=== PATIENT | male | born 1940 ===

== ENCOUNTER 2017-03-20 19:03 | Inpatient (IN) ==
[2017-03-20] MEDS: POTASSIUM CHLORIDE INJ 10 MEQ in LACTATED RINGERS 1,000 ML IV SCH (20:09)
[2017-03-20] MEDS ORDERED: ONDANSETRON 4 MG/2 ML VIAL IV PRN (20:21)
[2017-03-20] MEDS ORDERED: MORPHINE 2 MG/1 ML SYRINGE IV PRN (20:21)
[2017-03-20] MEDS ORDERED: amLODIPine 5 MG TABLET PO STA (20:26)
[2017-03-20] MEDS ORDERED: DEXTROSE 50% 25 GM/50 ML VIAL IV PRN (20:26)
[2017-03-20] MEDS ORDERED: GLUCAGON 1 MG VIAL IM PRN (20:26)
[2017-03-20] MEDS ORDERED: ENOXAPARIN 40 MG/0.4 ML SYRINGE SUBCUT SCH (21:00)
[2017-03-21] MEDS: SODIUM CHLORIDE 0.9% 1,000 ML IV SCH ×3 (01:33→09:52)
[2017-03-21 06:19] LABS: Basophils % 0.3 % (0.0-0.8); Hematocrit 31.6 VOL% (42.0-52.0); Hemoglobin 9.3 GM/DL (14.0-18.0); Immature Granulocytes % 0.7 %; Immature Granulocytes Absolute 0.06 #; Lymphocytes # 0.9 10*3/uL (1.4-4.0); Lymphocytes % 9.6 % (21.2-54.2); Mean Corpuscular HGB Conc 29.4 GM/DL (32-36); Mean Corpuscular Hemoglobin 25 PG (27-34); Mean Corpuscular Volume 85.2 FL (87-102); Mean Platelet Volume 11.3 FL (9.6-12.0); Monocytes # 0.7 10*3/uL (0.11-0.8); Monocytes % 7.3 % (1.7-12.7); Neutrophils # 7.5 10*3/uL (1.4-7.4); Neutrophils % 82.1 % (38.7-73.9); Platelet Count 135 T/CUMM (130-400); Red Blood Count 3.71 MC/CUMM (3.8-5.5); Red Cell Distribution Width 18.9 % (9.3-17.3); White Blood Count 9.1 T/CUMM (4-12)
[2017-03-21] MEDS: POTASSIUM CHLORIDE INJ 10 MEQ in LACTATED RINGERS 1,000 ML IV SCH (06:21)
[2017-03-21 06:43] LABS: Albumin 2.8 G/DL (3.4-5.0); Bilirubin,Total 0.6 MG/DL (0.2-1.0); Calcium 8.9 MG/DL (8.5-10.1); Potassium 4.9 MMOL/L (3.5-5.1); Total Protein 6.9 G/DL (6.4-8.3)
[2017-03-21] MEDS ORDERED: INSULIN REGULAR 100 UNIT/ML SUBCUT SCH (07:30)
[2017-03-21] MEDS: PANTOPRAZOLE 40 MG VIAL IV SCH (09:50)
[2017-03-21 10:47] LABS: Cancer Antigen 19-9 59.9 U/ML (0-37); Carcinoembryonic Antigen < 0.5 NG/ML (0.0-5.0); Prostate Specific Antigen Diag 0.1 NG/ML (0-4)
[2017-03-21] MEDS: DEXTROSE 5% NACL 0.9% 1,000 ML IV SCH (15:37)
[2017-03-21] MEDS: INSULIN REGULAR 100 UNIT/ML SUBCUT SCH ×3 (15:48→23:14)
[2017-03-21] MEDS: FERROUS SULFATE 325 MG TABLET PO SCH ×2 (15:49→23:13)
[2017-03-22] MEDS: DEXTROSE 5% NACL 0.9% 1,000 ML IV SCH ×4 (00:15→18:34)
[2017-03-22 06:07] LABS: Basophils % 0.3 % (0.0-0.8); Eosinophils % 0.6 % (0.00-10.9); Hematocrit 26.5 VOL% (42.0-52.0); Hemoglobin 8.1 GM/DL (14.0-18.0); Immature Granulocytes % 0.6 %; Immature Granulocytes Absolute 0.04 #; Lymphocytes % 15.8 % (21.2-54.2); Mean Corpuscular HGB Conc 30.6 GM/DL (32-36); Mean Corpuscular Hemoglobin 25 PG (27-34); Mean Corpuscular Volume 83.1 FL (87-102); Mean Platelet Volume 11.8 FL (9.6-12.0); Monocytes # 0.6 10*3/uL (0.11-0.8); Monocytes % 9.8 % (1.7-12.7); Neutrophils # 4.7 10*3/uL (1.4-7.4); Neutrophils % 72.9 % (38.7-73.9); Platelet Count 128 T/CUMM (130-400); Red Blood Count 3.19 MC/CUMM (3.8-5.5); Red Cell Distribution Width 18.8 % (9.3-17.3); White Blood Count 6.5 T/CUMM (4-12)
[2017-03-22 06:32] LABS: Osmolality,Calculated 297.6 MOS/KG (273-304)
[2017-03-22] MEDS ORDERED: PROPOFOL 200 MG/20 ML VIAL IV ONE (09:00)
[2017-03-22] MEDS ORDERED: LIDOCAINE 100 MG/5 ML SYRINGE ONE (09:00)
[2017-03-22] MEDS: INSULIN REGULAR 100 UNIT/ML SUBCUT SCH ×4 (09:02→20:35)
[2017-03-22] MEDS: ALLOPURINOL 100 MG TABLET PO SCH (09:03)
[2017-03-22] MEDS: amLODIPine 5 MG TABLET PO SCH (09:03)
[2017-03-22] MEDS: PANTOPRAZOLE 40 MG VIAL IV SCH (09:03)
[2017-03-22] MEDS: FERROUS SULFATE 325 MG TABLET PO SCH ×3 (09:03→20:54)
[2017-03-22] MEDS: LOVASTATIN 20 MG TABLET PO SCH (09:03)
[2017-03-22] MEDS: METOCLOPRAMIDE 10 MG/10 ML UDCUP PO SCH ×2 (16:56→20:55)
[2017-03-23] MEDS: DEXTROSE 5% NACL 0.9% 1,000 ML IV SCH ×2 (02:39→15:00)
[2017-03-23] MEDS: METOCLOPRAMIDE 10 MG/10 ML UDCUP PO SCH ×2 (08:28→11:51)
[2017-03-23] MEDS: FERROUS SULFATE 325 MG TABLET PO SCH ×3 (08:29→20:46)
[2017-03-23] MEDS: amLODIPine 5 MG TABLET PO SCH (08:29)
[2017-03-23] MEDS: PANTOPRAZOLE 40 MG VIAL IV SCH ×2 (08:29→20:46)
[2017-03-23] MEDS: ALLOPURINOL 100 MG TABLET PO SCH (08:29)
[2017-03-23] MEDS: LOVASTATIN 20 MG TABLET PO SCH (08:29)
[2017-03-23] MEDS: INSULIN REGULAR 100 UNIT/ML SUBCUT SCH ×4 (08:42→20:47)
[2017-03-23] MEDS: DIPHENOXYLATE/ATROPINE 2.5-0.025 MG TABLET PO SCH ×2 (18:33→20:46)
[2017-03-24] MEDS: DEXTROSE 5% NACL 0.9% 1,000 ML IV SCH ×2 (05:04→21:11)
[2017-03-24 05:15] LABS: Basophils % 0.6 % (0.0-0.8); Eosinophils # 0.1 10*3/uL (0.0-0.87); Eosinophils % 1.9 % (0.00-10.9); Hematocrit 26.4 VOL% (42.0-52.0); Hemoglobin 7.8 GM/DL (14.0-18.0); Immature Granulocytes % 0.6 %; Immature Granulocytes Absolute 0.04 #; Lymphocytes % 14.2 % (21.2-54.2); Mean Corpuscular HGB Conc 29.5 GM/DL (32-36); Mean Corpuscular Hemoglobin 25 PG (27-34); Mean Platelet Volume 11.5 FL (9.6-12.0); Monocytes # 0.5 10*3/uL (0.11-0.8); Monocytes % 8.1 % (1.7-12.7); Neutrophils % 74.6 % (38.7-73.9); Platelet Count 186 T/CUMM (130-400); Red Blood Count 3.07 MC/CUMM (3.8-5.5); Red Cell Distribution Width 18.6 % (9.3-17.3); White Blood Count 6.7 T/CUMM (4-12)
[2017-03-24 05:59] LABS: Albumin 2.4 G/DL (3.4-5.0); Bilirubin,Total 0.4 MG/DL (0.2-1.0); Calcium 7.9 MG/DL (8.5-10.1); Osmolality,Calculated 294.3 MOS/KG (273-304); Total Protein 6.1 G/DL (6.4-8.3)
[2017-03-24] MEDS: DIPHENOXYLATE/ATROPINE 2.5-0.025 MG TABLET PO SCH ×4 (08:59→21:05)
[2017-03-24] MEDS: PANTOPRAZOLE 40 MG VIAL IV SCH ×2 (08:59→21:02)
[2017-03-24] MEDS: amLODIPine 5 MG TABLET PO SCH (08:59)
[2017-03-24] MEDS: FERROUS SULFATE 325 MG TABLET PO SCH ×3 (09:02→21:05)
[2017-03-24] MEDS: INSULIN REGULAR 100 UNIT/ML SUBCUT SCH ×4 (09:02→23:21)
[2017-03-24] MEDS: LOVASTATIN 20 MG TABLET PO SCH (09:02)
[2017-03-24] MEDS: ALLOPURINOL 100 MG TABLET PO SCH (09:03)
[2017-03-24] MEDS ORDERED: DIAZEPAM 5 MG TABLET PO ONE (09:31)
[2017-03-24 10:05] LABS: INR 1.2; PT Patient Result 12.5 SECS; Partial Thromboplastin Time 30.3 SECS (0-40)
[2017-03-25 07:05] LABS: Basophils % 0.4 % (0.0-0.8); Eosinophils # 0.1 10*3/uL (0.0-0.87); Eosinophils % 1.2 % (0.00-10.9); Hematocrit 27.2 VOL% (42.0-52.0); Immature Granulocytes % 0.3 %; Immature Granulocytes Absolute 0.02 #; Lymphocytes % 15.1 % (21.2-54.2); Mean Corpuscular HGB Conc 29.4 GM/DL (32-36); Mean Corpuscular Hemoglobin 25 PG (27-34); Mean Corpuscular Volume 86.1 FL (87-102); Mean Platelet Volume 11.6 FL (9.6-12.0); Monocytes # 0.6 10*3/uL (0.11-0.8); Neutrophils # 5.2 10*3/uL (1.4-7.4); Platelet Count 227 T/CUMM (130-400); Red Blood Count 3.16 MC/CUMM (3.8-5.5); Red Cell Distribution Width 18.6 % (9.3-17.3); White Blood Count 6.9 T/CUMM (4-12)
[2017-03-25 07:38] LABS: Albumin 2.4 G/DL (3.4-5.0); Calcium 8.4 MG/DL (8.5-10.1); Osmolality,Calculated 295.1 MOS/KG (273-304); Total Protein 6.1 G/DL (6.4-8.3)
[2017-03-25] MEDS: INSULIN REGULAR 100 UNIT/ML SUBCUT SCH ×4 (07:47→22:54)
[2017-03-25] MEDS: DIPHENOXYLATE/ATROPINE 2.5-0.025 MG TABLET PO SCH ×4 (09:21→21:44)
[2017-03-25] MEDS: LOVASTATIN 20 MG TABLET PO SCH (09:21)
[2017-03-25] MEDS: amLODIPine 5 MG TABLET PO SCH (09:21)
[2017-03-25] MEDS: FERROUS SULFATE 325 MG TABLET PO SCH ×3 (09:21→21:44)
[2017-03-25] MEDS: ALLOPURINOL 100 MG TABLET PO SCH (09:21)
[2017-03-25] MEDS: PANTOPRAZOLE 40 MG VIAL IV SCH ×2 (09:21→21:42)
[2017-03-25] MEDS: DEXTROSE 5% NACL 0.9% 1,000 ML IV SCH (12:35)
[2017-03-26] MEDS: DEXTROSE 5% NACL 0.9% 1,000 ML IV SCH (06:20)
[2017-03-26 07:06] LABS: Basophils # 0.1 10*3/uL (0.0-0.2); Basophils % 0.7 % (0.0-0.8); Eosinophils # 0.1 10*3/uL (0.0-0.87); Eosinophils % 1.3 % (0.00-10.9); Hematocrit 27.3 VOL% (42.0-52.0); Hemoglobin 8.2 GM/DL (14.0-18.0); Immature Granulocytes % 0.4 %; Immature Granulocytes Absolute 0.03 #; Lymphocytes # 1.2 10*3/uL (1.4-4.0); Lymphocytes % 16.3 % (21.2-54.2); Mean Corpuscular Hemoglobin 25 PG (27-34); Mean Corpuscular Volume 84.3 FL (87-102); Mean Platelet Volume 11.4 FL (9.6-12.0); Monocytes # 0.6 10*3/uL (0.11-0.8); Monocytes % 8.3 % (1.7-12.7); Neutrophils # 5.5 10*3/uL (1.4-7.4); Platelet Count 229 T/CUMM (130-400); Red Blood Count 3.24 MC/CUMM (3.8-5.5); Red Cell Distribution Width 18.6 % (9.3-17.3); White Blood Count 7.5 T/CUMM (4-12)
[2017-03-26 07:41] LABS: Albumin 2.5 G/DL (3.4-5.0); Bilirubin,Total 1.2 MG/DL (0.2-1.0); Calcium 8.4 MG/DL (8.5-10.1); Osmolality,Calculated 295.3 MOS/KG (273-304); Potassium 4.1 MMOL/L (3.5-5.1); Total Protein 6.6 G/DL (6.4-8.3)
[2017-03-26] MEDS: INSULIN REGULAR 100 UNIT/ML SUBCUT SCH ×4 (09:33→21:23)
[2017-03-26] MEDS: LOVASTATIN 20 MG TABLET PO SCH (09:34)
[2017-03-26] MEDS: ALLOPURINOL 100 MG TABLET PO SCH (09:34)
[2017-03-26] MEDS: amLODIPine 5 MG TABLET PO SCH (09:34)
[2017-03-26] MEDS: PANTOPRAZOLE 40 MG VIAL IV SCH ×2 (09:34→21:23)
[2017-03-26] MEDS: DIPHENOXYLATE/ATROPINE 2.5-0.025 MG TABLET PO SCH ×3 (09:34→21:23)
[2017-03-26] MEDS: FERROUS SULFATE 325 MG TABLET PO SCH ×3 (09:34→21:22)
[2017-03-27] MEDS: DEXTROSE 5% NACL 0.9% 1,000 ML IV SCH (06:15)
[2017-03-27] MEDS: INSULIN REGULAR 100 UNIT/ML SUBCUT SCH ×4 (09:07→21:06)
[2017-03-27] MEDS: DIPHENOXYLATE/ATROPINE 2.5-0.025 MG TABLET PO SCH ×3 (09:09→21:01)
[2017-03-27] MEDS: LOVASTATIN 20 MG TABLET PO SCH (09:09)
[2017-03-27] MEDS: FERROUS SULFATE 325 MG TABLET PO SCH ×3 (09:09→21:01)
[2017-03-27] MEDS: PANTOPRAZOLE 40 MG VIAL IV SCH (09:09)
[2017-03-27] MEDS: ALLOPURINOL 100 MG TABLET PO SCH (09:09)
[2017-03-27] MEDS: amLODIPine 5 MG TABLET PO SCH (09:09)
[2017-03-27] MEDS: CLARITHROMYCIN 500 MG TABLET PO SCH ×2 (11:41→21:01)
[2017-03-27] MEDS: AMOXICILLIN 500 MG CAPSULE PO SCH ×2 (11:41→21:01)
[2017-03-27] MEDS: DEXTROSE 5% NACL 0.22% 1,000 ML IV SCH (17:49)
[2017-03-27] MEDS: PANTOPRAZOLE 40 MG TABLET PO SCH (18:39)
[2017-03-28 06:26] LABS: Basophils % 0.5 % (0.0-0.8); Eosinophils # 0.1 10*3/uL (0.0-0.87); Eosinophils % 1.1 % (0.00-10.9); Hemoglobin 7.9 GM/DL (14.0-18.0); Immature Granulocytes % 0.7 %; Immature Granulocytes Absolute 0.05 #; Lymphocytes % 13.9 % (21.2-54.2); Mean Corpuscular HGB Conc 29.3 GM/DL (32-36); Mean Corpuscular Hemoglobin 25 PG (27-34); Mean Corpuscular Volume 86.3 FL (87-102); Mean Platelet Volume 10.8 FL (9.6-12.0); Monocytes # 0.6 10*3/uL (0.11-0.8); Monocytes % 8.1 % (1.7-12.7); Neutrophils # 5.6 10*3/uL (1.4-7.4); Neutrophils % 75.7 % (38.7-73.9); Platelet Count 236 T/CUMM (130-400); Red Blood Count 3.13 MC/CUMM (3.8-5.5); Red Cell Distribution Width 18.8 % (9.3-17.3); White Blood Count 7.4 T/CUMM (4-12)
[2017-03-28] MEDS: DEXTROSE 5% NACL 0.22% 1,000 ML IV SCH ×2 (06:54→06:55)
[2017-03-28] MEDS: PANTOPRAZOLE 40 MG TABLET PO SCH ×2 (06:56→18:47)
[2017-03-28 07:06] LABS: Calcium 8.4 MG/DL (8.5-10.1); Osmolality,Calculated 293.4 MOS/KG (273-304); Potassium 4.1 MMOL/L (3.5-5.1)
[2017-03-28] MEDS: INSULIN REGULAR 100 UNIT/ML SUBCUT SCH ×4 (08:40→21:08)
[2017-03-28] MEDS: DIPHENOXYLATE/ATROPINE 2.5-0.025 MG TABLET PO SCH ×3 (10:09→21:07)
[2017-03-28] MEDS: AMOXICILLIN 500 MG CAPSULE PO SCH ×2 (10:10→21:08)
[2017-03-28] MEDS: FERROUS SULFATE 325 MG TABLET PO SCH ×3 (10:10→21:08)
[2017-03-28] MEDS: CLARITHROMYCIN 500 MG TABLET PO SCH ×2 (10:10→21:07)
[2017-03-28] MEDS: amLODIPine 5 MG TABLET PO SCH (10:10)
[2017-03-28] MEDS: LOVASTATIN 20 MG TABLET PO SCH (10:11)
[2017-03-28] MEDS: ALLOPURINOL 100 MG TABLET PO SCH (10:11)
[2017-03-29] MEDS: DEXTROSE 5% NACL 0.22% 1,000 ML IV SCH ×4 (03:04→15:07)
[2017-03-29 05:42] LABS: Basophils % 0.6 % (0.0-0.8); Eosinophils # 0.2 10*3/uL (0.0-0.87); Eosinophils % 2.6 % (0.00-10.9); Hematocrit 25.4 VOL% (42.0-52.0); Hemoglobin 7.6 GM/DL (14.0-18.0); Immature Granulocytes % 0.3 %; Immature Granulocytes Absolute 0.02 #; Mean Corpuscular HGB Conc 29.9 GM/DL (32-36); Mean Corpuscular Hemoglobin 26 PG (27-34); Mean Corpuscular Volume 85.5 FL (87-102); Mean Platelet Volume 11.1 FL (9.6-12.0); Monocytes # 0.6 10*3/uL (0.11-0.8); Monocytes % 8.7 % (1.7-12.7); Neutrophils # 4.8 10*3/uL (1.4-7.4); Neutrophils % 72.8 % (38.7-73.9); Platelet Count 189 T/CUMM (130-400); Red Blood Count 2.97 MC/CUMM (3.8-5.5); Red Cell Distribution Width 18.6 % (9.3-17.3); White Blood Count 6.7 T/CUMM (4-12)
[2017-03-29 06:10] LABS: Calcium 8.1 MG/DL (8.5-10.1); Potassium 3.9 MMOL/L (3.5-5.1)
[2017-03-29] MEDS: PANTOPRAZOLE 40 MG TABLET PO SCH ×2 (06:28→21:37)
[2017-03-29] MEDS: FERROUS SULFATE 325 MG TABLET PO SCH ×3 (09:01→21:37)
[2017-03-29] MEDS: ALLOPURINOL 100 MG TABLET PO SCH (09:01)
[2017-03-29] MEDS: CLARITHROMYCIN 500 MG TABLET PO SCH ×2 (09:01→21:39)
[2017-03-29] MEDS: INSULIN REGULAR 100 UNIT/ML SUBCUT SCH ×3 (09:01→15:54)
[2017-03-29] MEDS: AMOXICILLIN 500 MG CAPSULE PO SCH ×2 (09:01→21:37)
[2017-03-29] MEDS: DIPHENOXYLATE/ATROPINE 2.5-0.025 MG TABLET PO SCH ×3 (09:02→21:39)
[2017-03-29] MEDS: amLODIPine 5 MG TABLET PO SCH (09:02)
[2017-03-29] MEDS: LOVASTATIN 20 MG TABLET PO SCH (09:03)
[2017-03-29] MEDS ORDERED: IRON SUCROSE 300 MG in SODIUM CHLORIDE 0.9% 100 ML IV ONE (10:00)
[2017-03-29] MEDS ORDERED: ACETAMINOPHEN 500 MG TABLET PO ONE (11:29)
[2017-03-29] MEDS ORDERED: diphenhydrAMINE CAP 50 MG CAPSULE PO ONE (11:29)
[2017-03-29] MEDS ORDERED: ONDANSETRON 4 MG/2 ML VIAL IV ONE (11:30)
[2017-03-30] MEDS: INSULIN REGULAR 100 UNIT/ML SUBCUT SCH ×3 (05:37→12:28)
[2017-03-30] MEDS: DIPHENOXYLATE/ATROPINE 2.5-0.025 MG TABLET PO SCH (09:49)
[2017-03-30] MEDS: PANTOPRAZOLE 40 MG TABLET PO SCH (09:49)
[2017-03-30] MEDS: CLARITHROMYCIN 500 MG TABLET PO SCH (09:49)
[2017-03-30] MEDS: FERROUS SULFATE 325 MG TABLET PO SCH (09:49)
[2017-03-30] MEDS: AMOXICILLIN 500 MG CAPSULE PO SCH (09:49)
[2017-03-30] MEDS: amLODIPine 5 MG TABLET PO SCH (09:50)
[2017-03-30] MEDS: LOVASTATIN 20 MG TABLET PO SCH (09:50)
[2017-03-30] MEDS: ALLOPURINOL 100 MG TABLET PO SCH (09:50)
[2017-03-30 14:02] VITALS: BP 121/61
== END 2017-03-30 15:00 | disposition swing bed (61) | DRG 542 ==
LOC: EDUNIT# → EDBD → N.ED 19:03 → N.EDINP 20:21 → SUATTDRO 20:21 → N.4E 20:55
PROVIDERS: ADMIT Internal Medicine Geriatric Medicine; ATTEND Internal Medicine